=== PATIENT | female | born 1940 | race Caucasian/White ===

== ENCOUNTER → 2025-01-04 09:13 | Outpatient (CLI) | payer MEDICARE, SELFPAY ==
--- NOTE | 2025-01-04 09:17 | DI.ECHO.S_ITS ---
[facility] +---------+ Hospital : : [address] : : [place] : : [id number] : : Phone: [phone] Echocardiogram Report + + :Name: JOSE FRANCE Study Date: 01/04/2025 Height: 68 in : :[facility] ReadingLocation: Weight: 157 lb: : Gender: Female BSA: 1.8 m2 : :: 1940 Age: 84 yrs : :Reason For Study: FLUTTER IN CHEST : :Ordering Physician: MAYRA, : :ARTHUR Erazo Performed By: Sergei Caballero : :Referring: ARTHUR CRESPO : + + Interpretation Summary The left ventricle is normal in size. The left ventricular ejection fraction is normal. The ejection fraction is estimated to be 60-65%. The right ventricle is normal in size and function. There is mild mitral regurgitation. Mild atherosclerotic plaque(s) in the aortic arch. Procedure: A two-dimensional transthoracic echocardiogram with color flow and Doppler was performed. The study quality was technically good. There is no prior echocardiogram noted for this patient. The patient was in normal sinus rhythm during the exam. Left Ventricle: The left ventricle is normal in size. There is normal left ventricular wall thickness. There is no thrombus. The ejection fraction is estimated to be 60-65%. The left ventricular ejection fraction is normal. There are no focal wall motion abnormalities. Diastolic parameters suggest a relaxation abnormality of the left ventricle, consistent with probable normal filling pressures. Right Ventricle: The right ventricle is normal in size and function. Atria: The left atrial size is normal. Right atrial size is normal. There is no Doppler evidence for an interatrial shunt. Mitral Valve: There is moderate mitral annular calcification. No significant mitral valve stenosis. There is mild mitral regurgitation. Aortic Valve: The aortic valve is trileaflet. The aortic valve is moderately calcified. The aortic valve opens well. There is discrete nodular thickening of the non- coronary cusp. There is no aortic valve stenosis. No aortic regurgitation is present. Tricuspid Valve: The tricuspid valve is normal. There is trace tricuspid regurgitation. Pulmonic Valve: The pulmonic valve is not well seen, but is grossly normal. There is trace pulmonic regurgitation. Great Vessels: The aortic root is normal size. The dimensions of the ascending aorta are normal. Mild atherosclerotic plaque(s) in the aortic arch. The pulmonary artery is normal size. The inferior vena cava was not well visualized. Pericardium/ Pleura There is no pericardial effusion. There is no pleural effusion. MMode/2D Measurements & Calculations LVIDd: 3.9 cm LVOT diam: 2.0 cm LVIDs: 2.8 cm Ao root diam: 3.2 cm FS: 28.0 % asc Aorta Diam: 2.6 cm EPSS: 0.67 cm Ao Arch Diam (Prox Trans): 1.9 cm IVSd: 1.0 cm LVPWd: 0.97 cm LV munoz. diameter/BSA (cm/m^2): 2.1 LV sys. diameter/BSA (cm/m^2): 1.5 LA A2 area: 15.5 cm2 RA long axis: 5.2 cm LA A4 area: 15.9 cm2 RA area: 13.7 cm2 LA length (vol): 5.0 cm RA vol: 30.6 ml LA vol: 41.7 ml RA : 16.6 ml/m2 LA vol index: 22.6 ml/m2 RVD1 (basal): 2.8 cm RVD2 (mid): 2.2 cm TAPSE: 2.6 cm Doppler Measurements & Calculations Ao V2 max: 112.9 cm/sec LVOT Max Maninder: 91.9 cm/sec Ao V2 mean: 73.4 cm/sec LV V1 max P.4 mmHg Ao max P.1 mmHg LV V1 VTI: 18.4 cm Ao mean P.4 mmHg MARLENY(I,D): 2.5 cm2 Ao V2 VTI: 22.6 cm MARLENY(V,D): 2.5 cm2 sev ratio: 0.81 MARLENY indexed to BSA (cm^2/m^2): 1.4 MV E max maninder: 66.9 cm/sec TR max maninder: 199.0 cm/sec MV A max maninder: 121.3 cm/sec TR max P.8 mmHg MV E/A: 0.55 PA V2 max: 67.1 cm/sec Med Peak E' Maninder: 5.7 cm/sec PA V2 mean: 49.0 cm/sec E/E' med: 11.8 PA mean P.1 mmHg Lat Peak E' Maninder: 6.1 cm/sec PA pr(Accel): 19.1 mmHg E/E' lat: 11.0 E/e' average: 11.4 MV dec time: 0.23 sec SV(LVOT): 57.2 ml Reading Physician:01:21 PM
== END ==
PROVIDERS: PCP Family Medicine; Referring Provider Family Medicine; Visit Provider Family Medicine
DX: I34.81 Nonrheumatic mitral (valve) annulus calcification (principal); I34.0 Nonrheumatic mitral (valve) insufficiency; I44.0 Atrioventricular block, first degree; I48.92 Unspecified atrial flutter; I48.91 Unspecified atrial fibrillation; R00.2 Palpitations; I70.0 Atherosclerosis of aorta
CPT/HCPCS: 93306

== ENCOUNTER → 2025-01-04 10:16 | Outpatient (CLI) | payer MEDICARE, SELFPAY | PROVIDERS: PCP Family Medicine; Referring Provider Family Medicine; Visit Provider Family Medicine | DX: R00.2 Palpitations (principal); I48.91 Unspecified atrial fibrillation; I48.92 Unspecified atrial flutter; I44.0 Atrioventricular block, first degree; I34.81 Nonrheumatic mitral (valve) annulus calcification; I34.0 Nonrheumatic mitral (valve) insufficiency; I70.0 Atherosclerosis of aorta | CPT/HCPCS: 93246; 93248; 93306 ==

== ENCOUNTER 2025-01-06 12:49 | Emergency (ER) | payer MEDICARE, SELFPAY ==
[2025-01-06 13:01] VITALS: BP 159/72; PULSE 83; RESP 20; TEMP 37; O2SAT 97; BMI 23.6
[2025-01-06 16:24] LABS: Add Manual Diff / Slide Review NO; Basophils Absolute Auto 100 /uL (0-100); Basophils Percent Auto 0.8 % (0-2); Eosinophils Absolute Auto 200 /uL (0-450); Eosinophils Percent Auto 2.5 % (2-4); Hemoglobin 14.9 g/dL (12.0-16.0); Lymphocytes Absolute Auto 1800 /uL (1100-4500); Lymphocytes Percent Auto 19.5 % (25-40); Mean Corpuscular HGB Conc 33.9 % (30-36); Mean Corpuscular Hemoglobin 32.8 PG (26-34); Mean Corpuscular Volume 96.6 fL (80-100); Monocytes Absolute Auto 1000 /uL (0-900); Monocytes Percent Auto 10.1 % (3-14); Neutrophils Absolute Auto 6300 /uL (1500-7000); Neutrophils Percent Auto 67.1 % (50-75); Platelet Count 270 X10^3/uL (150-400); Red Blood Cell Count 4.56 X10^6/uL (4.0-5.2); Red Cell Distribution Width 12.7 % (11.6-14.8); White Blood Cell Count 9.4 X10^3/uL (4.5-11.0)
[2025-01-06 16:34] LABS: Alanine Aminotransferase 28 IU/L (<35); Albumin 4.5 g/dL (3.5-5.0); Albumin Globulin Ratio 1.5 (1.0-2.8); Alkaline Phosphatase 82 U/L (38-126); Aspartate Aminotransferase 32 IU/L (14-36); BUN Creatinine Ratio 19.5 (6-22); Bilirubin Total 0.9 mg/dL (0.2-1.3); Blood Urea Nitrogen 15 mg/dL (7-17); Carbon Dioxide 26 mmol/L (22-32); Chloride 98 mmol/L (98-107); Estimated Glomerular Filt Rate > 60 mL/min (>60); Globulin 3.1 g/dL (1.7-4.1); Glucose 90 mg/dL (80-110); HEMOLYSIS < 15 (0-50); Sodium 135 mmol/L (137-145); Total Protein 7.6 g/dL (6.3-8.2)
--- NOTE | 2025-01-06 19:10 | ED_ITS ---
HPI - Back Pain/Injury General Chief Complaint: Back Pain/Injury Stated Complaint: t-14; back pain and getting worse Time Seen by Provider: 01/06/25 18:45 Source: patient Mode of arrival: Ambulatory Limitations: no limitations History of Present Illness HPI Narrative: 84-year-old female history of hypothyroidism, osteoporosis possible stroke in October who presents with complaint of low back pain. Patient had a fall several years ago had a known L3 compression fracture from that. States she tripped over her feet and had a fall on 12/26 has had some persistent pain since then. She already had some chronic low back pain in that area before sometimes on the right sometimes on the left has been a little bit more persistent. She has been taking diclofenac and cyclobenzaprine for pain management. She states symptoms are worse when she was in bed for awhile and then goes to get up. Other weights she states she has been able to walk and move without any other issues. After she gets out of bed and starts moving her pain is improved. She notes a few times when she has gotten out of bed she has urinated. But not consistently or regularly. She has not done it in the daytime. She states she was not had any other urinary symptoms but was treated for a UTI about 2 weeks ago. She denies any numbness tingling or weakness, no saddle anesthesia, no loss of bowel or bladder control otherwise. Related Data Home Medications Medication Instructions Recorded Confirmed cyclobenzaprine 10 mg tablet mg PO 12/29/24 12/29/24 diclofenac sodium 50 mg mg PO 12/29/24 12/29/24 tablet,delayed release levothyroxine 88 mcg tablet 88 mcg PO DAILY 12/29/24 12/29/24 meloxicam 7.5 mg tablet 7.5 mg PO DAILY 12/29/24 12/29/24 methylprednisolone 4 mg tablets in 0 mg PO 12/29/24 12/29/24 a dose pack nitrofurantoin 1 cap PO BID 12/29/24 12/29/24 monohydrate/macrocrystals 100 mg capsule Previous Rx's Medication Instructions Recorded cephalexin 500 mg capsule 500 mg PO Q8H 5 days #15 caps 01/06/25 Allergies Allergy/AdvReac Type Severity Reaction Status Date / Time No Known Drug Allergies Allergy Unverified 12/29/24 10:19 Review of Systems Review of Systems ROS Unobtainable: All systems reviewed & are unremarkable except as noted in HPI and below Patient History Social History Smoking Status: Never smoker Smoking Status: Never smoker Exam Narrative Exam Narrative: GENERAL: Alert and oriented x three, female in mild distress HEENT: Head normocephalic, atraumatic, EOMI, pupils reactive, face symmetric, moist mucous membranes NECK: Supple, full range of motion CARDIOVASCULAR: Regular rate and rhythm without murmurs, rubs or gallops. RESPIRATORY: Breath sounds equal bilaterally, no wheezes rales or rhonchi. ABDOMEN: Soft, nontender. Normoactive bowel sounds all 4 quadrants. No guarding or rebound, rigidity, no mass : No CVA tenderness BACK: No cervical, thoracic or lumbar vertebral point tenderness. Patient has normal range of motion. Patient's gait is normal. Rectal exam is deferred. Muscle strength is 5/5 in lower extremities, DTRs are 2/4 and lower extremities. Dorsalis pedis and tibialis pulses are 2+ and lower extremities. Sensation is intact in the lower extremities. EXTREMITIES: Normal range of motion, no clubbing or edema. Neurovascularly intact NEUROLOGICAL: Cranial nerves II through XII grossly intact. Moving all extremities SKIN: Warm, dry, no petechiae, no rashes or lesions. Initial Vital Signs Initial Vital Signs: Vital Signs Temperature 98.6 F 01/06/25 13:01 Pulse Rate 83 01/06/25 13:01 Respiratory Rate 20 01/06/25 13:01 Blood Pressure 159/72 H 01/06/25 13:01 Pulse Oximetry 97 01/06/25 13:01 Oxygen Delivery Method Room Air 01/06/25 13:01 Course Orders Ordered: Discontinued Medications Acetaminophen (Acetaminophen 325 Mg Tablet) 975 mg PO NOW ONE Stop: 01/06/25 19:54 Last Admin: 01/06/25 19:55 Dose: 975 mg Documented By: KRISTAL Vital Signs Vital signs: Vital Signs - 8 hr 01/06/25 13:01 01/06/25 19:52 Temperature 98.6 F Pulse Rate 83 82 Respiratory Rate 20 16 Blood Pressure 159/72 H 135/80 Pulse Oximetry 97 99 Oxygen Delivery Method Room Air Room Air MDM - Back Pain/Injury Lab Data 01/06/25 16:13 01/06/25 16:13 Labs: Lab Results 01/06/25 01/06/25 Range/Units 16:13 20:27 WBC 9.4 (4.5-11.0) X10^3/uL RBC 4.56 (4.0-5.2) X10^6/uL Hgb 14.9 (12.0-16.0) g/dL Hct 44.0 (36-46) % MCV 96.6 (80-100) fL MCH 32.8 (26-34) PG MCHC 33.9 (30-36) % RDW 12.7 (11.6-14.8) % Plt Count 270 (150-400) X10^3/uL Neut % (Auto) 67.1 (50-75) % Lymph % (Auto) 19.5 L (25-40) % Ellis % (Auto) 10.1 (3-14) % Eos % (Auto) 2.5 (2-4) % Baso % (Auto) 0.8 (0-2) % Neut # (Auto) 6300 (3710-9232) /uL Lymph # (Auto) 1800 (2321-9807) /uL Ellis # (Auto) 1000 H (0-900) /uL Eos # (Auto) 200 (0-450) /uL Baso # (Auto) 100 (0-100) /uL Sodium 135 L (137-145) mmol/L Potassium 4.0 (3.4-5.1) mmol/L Chloride 98 (98-107) mmol/L Carbon Dioxide 26 (22-32) mmol/L BUN 15 (7-17) mg/dL Creatinine 0.77 (0.52-1.04) mg/dL Estimated GFR > 60 (>60) mL/min BUN/Creatinine Ratio 19.5 (6-22) Glucose 90 (80-110) mg/dL Calcium 9.0 (8.4-10.2) mg/dL Total Bilirubin 0.9 (0.2-1.3) mg/dL AST 32 (14-36) IU/L ALT 28 (<35) IU/L Alkaline Phosphatase 82 (38-126) U/L Total Protein 7.6 (6.3-8.2) g/dL Albumin 4.5 (3.5-5.0) g/dL Globulin 3.1 (1.7-4.1) g/dL Albumin/Globulin Ratio 1.5 (1.0-2.8) Urine RBC None seen (0-5/HPF) Urine WBC 0-1/hpf (0-5/HPF) Ur Squamous Epith Cells 1-5 /hpf (0-5/HPF) Urine Bacteria Occasional (0-1) (None) Ur Culture Indicated? Specimen cultured Vol Urine Centrifuged 10ml (spun) Urine Dip Bedside Urine Glucose Negative Bedside Urine Bilirubin - Negative Bedside Urine Ketone - Negative Urine Specific [place] 1.015 Bedside Urine Occult Blood - Negative Bedside Urine pH 6.0 Bedside Urine Protein - Negative Bedside Urine Urobilinogen - Negative Bedside Urine Nitrite - Negative Bedside Urine Leukocytes +++ 500 Esterase MDM Narrative Medical decision making narrative: CBC with a white count of 9 hemoglobin of 14 platelets of 270. Sodium is 135 electrolytes are otherwise appropriate creatinine 0.77 LFTs are negative. Point of care urine shows 500+ leukocyte esterase. CT L-spine without contrast shows acute to subacute compression fractures of T11, T12 and L3 vertebral bodies with 20-50% height loss, moderate central canal stenosis at L2-L3 and L4-L5. Patient presents with a complaint of fall on 12/26 with diagnoses of L3 fracture at [facility]. Patient states not improving pain is worsening 5-10 pain moves from left to right when she stands up. Patient has a normal neurologic exam. Patient ambulates and moves without issue. [place] appropriate for discharge home with follow up we will treat for UTI but if patient is having worsening symptoms may have her follow up with return precautions. Discharge Plan Departure Patient Disposition: Home Clinical Impression: Compression fracture of vertebral column, UTI (urinary tract infection) Instructions: DI for Vertebral Fracture Activity Restrictions/Additional Instructions: Follow up with your physician for recheck. Your urine does show signs of infection I would have you complete antibiotics. Prescription sent to [facility] in [place]. Your CT imaging shows acute/subacute compression fractures of T11, T12 and L3 vertebral bodies with some moderate central canal stenosis at L2-3 and L4-5. Please follow up these results with your physician. You can take acetaminophen up to a 1000 mg every 6 hours along with your diclofenac and cyclobenzaprine. Please return if you have new or worsening back pain, new or changing loss of urinary or bladder control, bowel incontinence, new numbness, tingling or weakness, saddle anesthesia or numbness of the groin or other new or concerning changes. Prescriptions: New cephalexin 500 mg capsule 500 mg PO Q8H 5 Days Qty: 15 0RF No Action methylprednisolone 4 mg tablets,dose pack 0 mg PO cyclobenzaprine 10 mg tablet PO levothyroxine 88 mcg tablet 88 mcg PO DAILY nitrofurantoin monohyd/m-cryst 100 mg capsule 1 cap PO BID meloxicam 7.5 mg tablet 7.5 mg PO DAILY diclofenac sodium 50 mg tablet,delayed release (DR/EC) PO Referrals: Steve Block MD [Physician] - Glenis Garcia MD [Primary Care Provider] - Stand Alone Forms: Patient Portal/API/Survey
--- NOTE | 2025-01-06 19:23 | DI.CT.S_ITS ---
PROCEDURE: CT LUMBAR SPINE WO CON INDICATIONS: fall, hx L3 fx and fall again. TECHNIQUE: Noncontrast 3 mm thick sections acquired from the T12 level to the sacrum. Sagittal and coronal reformats were constructed. For radiation dose reduction, the following was used: automated exposure control. COMPARISON: Outside Film, CR, XR LUMBAR SPINE 2 OR 3 VIEWS, 12/27/2024, 13:56. FINDINGS: Image quality: Excellent. Bones: Diffuse osseous demineralization, which limits the assessment for fractures and fracture acuity. Acute-subacute fractures of the superior endplate of T12 and inferior endplate of T11 with approximately 20% height loss of the vertebral bodies (24; 5/32) and corresponding prevertebral soft tissue edema. These fractures are new compared to 12/27/2024. Re-identified acute-subacute L3 compression fracture with up to 50% height loss centrally (03/01). Alignment: Moderate levocurvature of the lumbar spine with the apex at L3. Straightening of the lumbar lordosis. Discs: Intervertebral disc height loss at T10-T11, L3-L4, and L5-S1. Central canal: Although the epidural space is not well assessed on CT, there is moderate central canal stenosis at L2-L3 and L4-L5. Neural foramina: No severe foraminal stenosis. Prevertebral soft tissues: Moderate aortoiliac atherosclerosis without aneurysmal dilatation. Scattered colonic diverticulosis. IMPRESSION: 1. Acute-subacute compression fractures of the T11, T12, and L3 vertebral bodies with 20-50% height loss. 2. Moderate central canal stenosis at L2-L3 and L4-L5. Dictated by: Jackson Chávez M.D. on 01/06/2025 at 19:45 Approved by: Jackson Chávez M.D. on 01/06/2025 at 19:51
[2025-01-06 19:52] VITALS: BP 135/80; PULSE 82; RESP 16; O2SAT 99
[2025-01-06] MEDS: ACETAMINOPHEN 325 MG TABLET 975 MG PO (19:55)
[2025-01-06 21:02] VITALS: BP 159/77; PULSE 73; RESP 14; O2SAT 100
[2025-01-06 21:14] LABS: Bacteria Urine Occasional (0-1); Culture Indicated Urine Specimen Cultured; RBC Urine None Seen (0-5/HPF); Squamous Epithelial Cell Urine 1-5 /HPF (0-5/HPF); Urine Volume 10mL (spun); WBC Urine 0-1/HPF (0-5/HPF)
== END 2025-01-06 21:04 | disposition home or self-care (01) ==
PROVIDERS: Family Medicine; Emergency Provider Emergency Medicine; PCP Family Medicine
DX: S32.039A Unspecified fracture of third lumbar vertebra, initial encounter for closed fracture (principal); S22.089A Unspecified fracture of T11-T12 vertebra, initial encounter for closed fracture; N39.0 Urinary tract infection, site not specified; W01.0XXA Fall on same level from slipping, tripping and stumbling without subsequent striking against object, initial encounter
CPT/HCPCS: 72131; 80053; 81003; 81015; 85025; 87086; 99283; 99284

== ENCOUNTER → 2025-03-06 12:43 | Outpatient (CLI) | payer MEDICARE, SELFPAY ==
--- NOTE | 2025-03-06 12:44 | DI.MRI.S_ITS ---
PROCEDURE: MR LUMBAR SPINE WO CON INDICATIONS: CLOSED WEDGE COMP FX TECHNIQUE: Noncontrast sagittal T1 spin echo and T2 fast echo, sagittal STIR, and T2 fast spin echo through the lumbar spine. In cases with scoliosis, additional coronal T2 fast spin echo may be performed. COMPARISON: [facility], MR, MR LUMBAR SPINE WITHOUT CONTRAST, 01/16/2025, 9:32. FINDINGS: Image quality: Excellent. Alignment and Curvature: Focal kyphosis centered at T11-T12. Straightening of the normal lumbar lordosis. Levo scoliotic curvature Bone Marrow: Moderate compression deformity of L3 without associated edema, stable compared to prior. Mild superior endplate compression deformity of T12 and mild inferior endplate compression deformity of T11 with associated edema, consistent with subacute etiology. T12 compression deformity appears progressed. Spinal Cord: Conus medullaris terminates at the L1 level. Visualized cord demonstrates normal signal and size. Paraspinous Soft Tissues: No paravertebral masses. T12-L1: Disc desiccation and disc bulge with superimposed left paracentral disc protrusion. No central canal or neural foraminal stenosis. L1-L2: Disc desiccation and mild disc bulge. Facet arthropathy and thickening of ligamentum flavum. No central canal stenosis. No neural foraminal stenosis. L2-L3: Disc desiccation and diffuse disc bulge. Facet arthropathy and thickening of ligamentum flavum. Moderate central canal stenosis. Moderate bilateral neural foraminal stenosis. Stable compared to prior. L3-L4: Disc desiccation and diffuse disc bulge. Facet arthropathy. Mild central canal stenosis is stable. Mild bilateral neural foraminal stenosis is stable. L4-L5: Disc desiccation diffuse disc bulge. Facet arthropathy. Mild central canal stenosis. Mild bilateral neural foraminal stenosis. Stable compared to prior. L5-S1: Disc desiccation and moderate height loss. Facet arthropathy. No central canal stenosis. No neural foraminal stenosis. IMPRESSION: 1. T12 compression deformity appears progressed compared to prior. Stable T11 and L3 compression deformities. 2. Redemonstration of multilevel degenerative changes of the lumbar spine, stable compared to prior. Dictated by: Amilcar Brito M.D. on 03/06/2025 at 14:22 Approved by: Amilcar Brito M.D. on 03/06/2025 at 14:28
== END ==
PROVIDERS: PCP Family Medicine; Referring Provider Orthopaedic Surgery Orthopaedic Surgery of the Spine; Visit Provider Orthopaedic Surgery Orthopaedic Surgery of the Spine
DX: S32.030A Wedge compression fracture of third lumbar vertebra, initial encounter for closed fracture (principal); S22.080A Wedge compression fracture of T11-T12 vertebra, initial encounter for closed fracture; M89.8X8 Other specified disorders of bone, other site
CPT/HCPCS: 72148

== ENCOUNTER → 2025-03-29 12:51 | Outpatient (CLI) | payer MEDICARE, SELFPAY ==
--- NOTE | 2025-03-29 12:52 | DI.US.S_ITS ---
PROCEDURE: US CAROTID DOPPLER BI INDICATIONS: Cerevrovascular accident TECHNIQUE: Color and pulse Doppler interrogation was performed of both carotid systems, with image documentation and velocity measurements. COMPARISON: None. FINDINGS: Stenosis calculations are based on SRU (Society of Radiologists in Ultrasound) criteria. Right side: Brachial blood pressure: 168/75 mm Hg. Common carotid artery peak systolic velocity: 72 cm/sec. Internal carotid artery peak systolic velocity: 84 cm/sec. Internal carotid artery end diastolic velocity: 21 cm/sec. External carotid artery peak systolic velocity: 91 cm/sec. ICA/CCA peak systolic ratio: 1.2 . Scott scale imaging description: Minimal noncalcified plaque at the right carotid bulb. Waveforms are normal. Percent internal carotid artery stenosis: Normal . Vertebral artery: Flow direction is antegrade. Left side: Brachial blood pressure: 158/74 mm Hg. Common carotid artery peak systolic velocity: 67 cm/sec. Internal carotid artery peak systolic velocity: 103 cm/sec. Internal carotid artery end diastolic velocity: 28 cm/sec. External carotid artery peak systolic velocity: 87 cm/sec. ICA/CCA peak systolic ratio: 1.5 . Scott scale imaging description: Minor noncalcified plaque at the left carotid bulb. Normal waveforms. Percent internal carotid artery stenosis: Normal . Vertebral artery: Flow direction is antegrade. IMPRESSION: 1. In the right carotid artery, there is no hemodynamically significant stenosis based on peak systolic velocity criteria. 2. In the left carotid artery, there is no hemodynamically significant stenosis based on peak systolic velocity criteria. 3. Antegrade vertebral arteries. Dictated by: Emilia Edwards M.D. on 03/29/2025 at 17:23 Approved by: Emilia Edwards M.D. on 03/29/2025 at 17:26
== END ==
LOC: US 12:51
PROVIDERS: PCP Family Medicine; Referring Provider Internal Medicine; Visit Provider Internal Medicine
DX: I63.9 Cerebral infarction, unspecified (principal)
CPT/HCPCS: 93880